=== PATIENT | female | born 1970 | race Caucasian/White ===

== ENCOUNTER 2021-02-22 20:17 | Emergency (ER) | payer OTHER, SELFPAY ==
[2021-02-22 20:25] VITALS: BP 110/89; PULSE 79; RESP 16; TEMP 37; O2SAT 96; BMI 26.5
[2021-02-22 21:05] VITALS: BP 110/89; PULSE 79; RESP 16; TEMP 37; O2SAT 96; BMI 26.6
[2021-02-22 21:20] LABS: UTC Influenza A Antigen Negative (Negative); UTC Influenza B Antigen Negative (Negative)
--- NOTE | 2021-02-22 21:22 | HMH.EDUTC ---
[facility] [place] Disposition Clinical Impression: Strep throat Disposition: Home, Self-Care Condition on Discharge: Good Instructions: DI for Fever (Symptom) -- Adult, DI for Headache, DI for COVID-19 (Suspected or Confirmed ) Additional Instructions: *Monitor Temp, Over the counter Motrin or Tylenol as directed/as needed Tylenol every 4 hours and Motrin every 6 hours (as long as your family doctor has told you that you can take it) for fever or pain. and straight to ER if unable to lower temp less than 101.0 after medication given *Warm salt water gargles may help to soothe the throat *Throat Lozenges *Warm fluids like tea with honey may help to soothe the throat *Sleep elevated *Humidifier/Vaporizer Your throat swab was sent for culture. Those results are typically sent to your primary care. Be sure to follow up in 2-3 days with your family doctor/primary care physician if no improvement so they can review those result and treat if necessary. If you don?t have a primary care doctor, I recommend you get one but in the mean time, you will have to return to a walk in clinic Follow up IMMEDIATELY for new or worsening symptoms or no Noticeable improvement over the next 48-72 hours. 911 for difficulty breathing or swallowing You were tested for today for COVID19 your test result should be back in the next 24-48 hours, you check your results on the [facility] my health portal if you have trouble logging on or seeing your results you may call You was given a handout with instructions for Self Quarantine and Self isolation for while you wait on test results and what to do if they are positive If you are positive the Health Dept will be contacting you also Make sure to take your Vitamins Vit. C Vit D and Zinc if you can take them Referrals: Demetria Gonsalez APRN [Primary Care Provider] - As needed Time of Disposition: 21:32 Medical Decision Making - Esteban Inquiry Pt receiving controlled substance: No Esteban was queried for this patient: No Vital Signs: 02/22/21 20:25 02/22/21 21:05 Temperature 98.6 F 98.6 F Temperature Source Oral Oral Pulse Rate [Right] 79 79 Respiratory Rate 16 16 Blood Pressure [Right Arm] 110/89 110/89 Blood Pressure Mean [Right Arm] 96 96 Blood Pressure Source [Right Arm] Automatic Cuff Blood Pressure Position [Right Arm] Sitting 02 Sat by Pulse Oximetry 96 96 Oxygen Delivery Method Room Air Room Air - Lab Data Lab results reviewed: Yes: I reviewed the patient's lab results. Lab Results 02/22/21 20:59: Influenza Type A Ag Negative, Influenza Type B Ag Negative Orders (Tests/Meds): ORDERS Category Date Time Status Covid-19 Nasal PCR ([facility]) Routine Lab 02/22/21 20:59 Ordered [facility] [place] HPI - General Stated complaint: vomiting,chills,Body Pain,CANDELARIA Time Seen by Provider: 02/22/21 21:22 Mode of Arrival: Ambulatory Source of Information: Patient Limitations: No Limitations Description of Symptoms (Recalled from Triage Doc. by RN): C/O cough, bodyaches, vomiting, chills, CANDELARIA, increased thirst HEENT Symptoms (Recalled from RN notes): Yes (CANDELARIA, sore throat) Resp Symptoms (Recalled from RN notes): Yes (cough) Skin Symptoms (Recalled from RN notes): No MS Symptoms (Recalled from RN notes): Yes (Bodyaches) Functional Status (Recalled from RN notes): n/a - History of Present Illness Provider Complaint: Patient states that she has been having sore throat, runny nose, headache body aches and vomited x 1 this morning State that she has been feeling achy all day and laying around having headache States that she has been drinking plenty of fluids today but her throat still feels irritated - Related Data Allergies Allergy/AdvReac Type Severity Reaction Status Date / Time amoxicillin [AMOXICILLIN] Allergy Unknown SWELLING Unverified 06/08/18 10:34 Penicillins Allergy Verified 02/22/21 21:09 - Worker's Comp Is this a Worker's Comp case?: No [facility] History - Hepatitis A Screen Drug use history?: No T[place]
[2021-02-22 21:36] LABS: UTC Strep Screen (Rapid) Negative (Negative)
[2021-02-22 21:41] VITALS: BP 110/89; PULSE 79; RESP 16; TEMP 37; O2SAT 96
== END 2021-02-22 21:44 | disposition home or self-care (01) ==
PROVIDERS: Emergency Provider Nurse Practitioner; PCP Nurse Practitioner
DX: J02.0 Streptococcal pharyngitis (principal)
CPT/HCPCS: 87804; 87880; 99203; C9803; G0463; U0003; U0005